=== PATIENT | male | born 1940 | race Caucasian/White ===

== ENCOUNTER 2016-10-08 08:05 | Day surgery (SDC) | payer OTHER ==
[2016-10-05 14:09] LABS: HEMATOCRIT 45.6 % (40.0-51.0); HEMOGLOBIN 15.5 g/dL (13.6-17.8)
[2016-10-05 14:22] LABS: BUN (BLOOD UREA NITROGEN) 15 MG/DL (6-23); CALCIUM, SERUM 9.1 MG/DL (8.5-10.4); CHLORIDE, SERUM 104 MMOL/L (96-112); CREATININE 0.77 MG/DL (0.70-1.30); GFR AFRICAN AMERICAN 103 ML/MIN (>=60); GFR NON AFRICAN AMERICAN 89 ML/MIN (>=60); GLUCOSE, SERUM 92 MG/DL (60-99); POTASSIUM, SERUM 3.9 MMOL/L (3.5-5.3); SODIUM, SERUM 142 MMOL/L (135-148)
[2016-10-05 14:23] LABS: CO2 (CARBON DIOXIDE) 31 MMOL/L (24-34)
--- NOTE | ~2016-10-08 | OP ---
Record Of Operation [facility] [address] [place]. [address] NAME: IZABELA MURPHY : 42 STATUS : [facility]#: [id number] AGE: 76 ADM/REG DATE : 10/08/16 MR#: [id number] REPORT SERV DATE: 10/11/16 DICTATED BY: BING OTOOLE DATE: 10/08/16 REPORT STATUS : Draft TRANSCRIBED BY: MODL DATE: 10/08/16 DATE OF PROCEDURE: 10/08/2016 PREOPERATIVE DIAGNOSIS: Right inguinal hernia. POSTOPERATIVE DIAGNOSIS: Indirect right inguinal hernia. PROCEDURES: 1. Open inguinal herniorrhaphy with mesh. 2. Neurectomy. ATTENDING SURGEON: Bing Otoole M.D. RESIDENT SURGEON: Linh Gann M.D. ANESTHESIA: MAC anesthesia and local anesthesia. SPECIMEN: Hernia sac. BLOOD LOSS: Less than 5 mL. COMPLICATIONS: None. INDICATION: Mr. Murphy is a 76-year-old male, who presented with a troublesome right inguinal hernia. He was offered elective repair under MAC and local anesthesia. Risks and benefits were discussed with the patient as well as alternatives. Questions were sought and answered. The patient wished to proceed. DESCRIPTION OF THE OPERATION: The patient is brought to the operating room, placed supine on the operating table. After satisfactory induction of general endotracheal anesthesia, the patient's abdomen was prepped and draped in usual sterile fashion with special attention to the right lower groin area. A time-out was performed with all operating staff present and the patient received appropriate preoperative antibiotics. We began by performing a nerve block just one finger medial to the anterior-superior iliac spine and then infiltrating anesthesia along this track down to the inguinal crease. We then made an oblique incision over the expected area of the external ring. We then dissected down to the subcutaneous tissues and Priscilla fascia using Bovie electrocautery. The patient had a fairly well- developed Priscilla fascia and once deep to this we were able to identify the aponeurosis of the external oblique. This was elevated and then we made a stab incision with a scalpel and then opened the aponeurosis in the direction of the fibers using Metzenbaum scissors. The nerve was identified and dissected out and this was a branch nerve. We opted to take this and using hemostats clamped it in three places and then divided with scissors. Each remaining end of the nerve was ligated using a 3-0 Vicryl tie. We then used a push or rather a finger dissection to dissect out the cord and hernia sac structures from the underside of the aponeurosis. We then placed a finger onto the pubic tubercle and were able to get around the cord and hernia sac and then this was elevated using a Aaron. We then Record Of Operation [facility] [id number] [place]. [address] NAME: IZABELA MURPHY : 42 STATUS : [facility] PAT#: [id number] AGE: 76 ADM/REG DATE : 10/08/16 MR#: [id number] REPORT SERV DATE: 10/11/16 DICTATED BY: BING OTOOLE DATE: 10/08/16 REPORT STATUS : Draft TRANSCRIBED BY: SUSANA DATE: 10/08/16 carefully dissected out the sac from the cord structures. Cord structures including vas were clearly identified and kept separate from our dissection. Ultimately, when we had this dissected out, this appeared to be an indirect defect with a somewhat attenuated internal ring. The sac was elevated and twisted and then a 2-0 Vicryl stick tie used to ligate the remaining stump. The sac itself was passed off the table as specimen. After high ligation of the sac was reduced in the abdomen and again we felt that the internal ring was somewhat attenuated. Therefore, we trimmed a piece of soft Prolene mesh and rolled this for to make a plug and secured this with Vicryl. The plug was placed within the defect and the floor of the canal was loosely closed over this. We then took our Prolene mesh and cut this to fit. We then used 0 Nurolon to suture the mesh to the tissue overlying the pubic tubercle. We then interrupted sutures medial and laterally along the transversalis and shelving edge of the inguinal ligament respectively. We then crossed the tails and took these under the oblique aponeurosis. Then a single suture was placed to reapproximate the tails of the crotch to recreate the external ring. There was enough room for the cord to move freely and was not impinging. We then irrigated this with normal saline. The aponeurosis was reapproximated using running 2-0 Vicryl suture. Further local anesthesia was injected into the fascia and the subcutaneous tissue. We then reapproximated the Priscilla fascia as well as subcutaneous fat using interrupted 3-0 Vicryl suture, and then skin edges were reapproximated using 4-0 Monocryl suture in a running subcuticular fashion. Sterile dressing of Dermabond was placed. The patient was tolerating the procedure well and was able to be taken to PACU in stable condition. Dr. Otoole, the attending was present and scrubbed for the entirety of the case. There were no obvious complications. DICTATED BY: Linh Gann MD SE/MODL Bing Otoole MD / [id number] CC: MD Sandy Gallego M.D.
[~2016-10-08 08:05] MED LIST: AMITIZA24 PO; BACDS PO; CENTRUM TAB1 TAB PO; CO Q-10100 MG PO; COUMADIN10 MG PO; DCN100 PO; EXELON3 PO; EXFORGE1 TA3 PO; MAGOX4 PO; NEXIUM40 PO; NORV5 PO; PRIN10 PO; SIN25 PO; VITAMIN D31000 UNIT PO; ZANTAC150 MG PO
[2016-10-08 08:36] LABS: INTERNATIONAL NORMAL RATI 1.3 UNITS (-)
[2016-10-08 08:39] LABS: PROTIME (NOT ORD) 15.8 SEC (12.0-14.5)
== END 2016-10-08 20:40 | disposition home or self-care (01) ==
LOC: SDC 08:05
PROVIDERS: Surgery
PROC: 01B90ZZ Excision of Lumbar Plexus, Open Approach (ICD-10-PCS; 2016-10-08)
PROC: 0YU50JZ Supplement Right Inguinal Region with Synthetic Substitute, Open Approach (ICD-10-PCS; principal; 2016-10-08 09:30)
DX: K40.90 Unilateral inguinal hernia, without obstruction or gangrene, not specified as recurrent (principal); I48.91 Unspecified atrial fibrillation; I10 Essential (primary) hypertension; E78.5 Hyperlipidemia, unspecified; E78.00 Pure hypercholesterolemia, unspecified; G20 Parkinson's disease; G47.33 Obstructive sleep apnea (adult) (pediatric); M19.90 Unspecified osteoarthritis, unspecified site; R22.9 Localized swelling, mass and lump, unspecified; K91.871 Postprocedural hematoma of a digestive system organ or structure following other procedure; Z99.89 Dependence on other enabling machines and devices; Z85.46 Personal history of malignant neoplasm of prostate; Z88.5 Allergy status to narcotic agent; Z79.01 Long term (current) use of anticoagulants; Z79.899 Other long term (current) drug therapy; Z87.891 Personal history of nicotine dependence; Z86.010 Personal history of colon polyps; Z98.890 Other specified postprocedural states; Z90.89 Acquired absence of other organs; Z90.79 Acquired absence of other genital organ(s); Z88.8 Allergy status to other drugs, medicaments and biological substances
CPT/HCPCS: 80048; 80053; 83605; 85014; 85018; 85025; 85610; 85730; 88302; 93005; 99283; A9270-GY; C1781; J0690; J2250; J3010

== ENCOUNTER 2017-01-03 22:44 | Emergency (ER) | payer OTHER ==
[2017-01-03 20:23] LABS: BASOPHILS 0.6 %; BASOPHILS ABSOLUTE 0.04 10/3/uL (0.0-0.16); EOSINOPHILS 1.6 %; ER CBC TAT 0 Hrs 13 Mins; HEMATOCRIT 44.9 % (40.0-51.0); HEMOGLOBIN 14.7 g/dL (13.6-17.8); IMMATURE GRANULOCYTES 0.2 %; IMMATURE GRANULOCYTES ABSOLUTE 0.01 10/3/uL (0.0-0.11); LYMPHOCYTES 24.1 %; LYMPHOCYTES ABSOLUTE 1.49 10/3/uL (0.67-4.30); MANUAL DIFF NO %; MEAN CORPUS HGB CONC 32.7 g/dL (32.0-36.0); MEAN CORPUSCULAR HEMOGLOB 29.6 pg (26.0-34.0); MEAN CORPUSCULAR VOLUME 90.3 fL (80-100); MEAN PLATELET VOLUME 12.3 fL (9.2-13.0); MONOCYTES 6.5 %; NEUTROPHILS ABSOLUTE 4.14 10/3/uL (2.02-8.40); PLATELET COUNT 152 10/3/uL (150-400); RED CELL COUNT 4.97 10/6/uL (4.7-6.1); WHITE BLOOD CELLS 6.2 10/3/uL (4.5-10.5)
[2017-01-03 20:31] LABS: INTERNATIONAL NORMAL RATI 2.4 UNITS (-)
[2017-01-03 20:32] LABS: PARTIAL THROMBO TIME 41.3 SEC (22.5-37.2); PROTIME (NOT ORD) 26.3 SEC (12.0-14.5)
[2017-01-03 20:38] LABS: BUN (BLOOD UREA NITROGEN) 18 MG/DL (6-23); CALCIUM, SERUM 8.9 MG/DL (8.5-10.4); CHEST PAIN PROFILE TAT 0 Hrs 28 Mins; CHLORIDE, SERUM 107 MMOL/L (96-112); CO2 (CARBON DIOXIDE) 31 MMOL/L (24-34); CREATININE 1.28 MG/DL (0.70-1.30); GFR AFRICAN AMERICAN 63 ML/MIN (>=60); GFR NON AFRICAN AMERICAN 54 ML/MIN (>=60); POTASSIUM, SERUM 4.3 MMOL/L (3.5-5.3); SODIUM, SERUM 143 MMOL/L (135-148); TROPONIN I <0.02 NG/ML (<0.05)
[2017-01-03 20:41] LABS: GLUCOSE, SERUM 90 MG/DL (60-99)
== END 2017-01-03 23:00 | disposition home or self-care (01) ==
LOC: ER 22:44
PROVIDERS: Emergency Medicine
DX: R07.89 Other chest pain (principal); I10 Essential (primary) hypertension; I48.91 Unspecified atrial fibrillation; Z88.5 Allergy status to narcotic agent; Z79.01 Long term (current) use of anticoagulants; Z79.899 Other long term (current) drug therapy
CPT/HCPCS: 71020; 80048; 83735; 84484; 85025; 85610; 85730; 93005; 99285